=== PATIENT | male | born 1970 ===

== ENCOUNTER → 2023-07-22 | Outpatient (CLI) | payer OTHER ==
[~2023-07-22] VITALS: Ht 190.5 cm; Wt 125.2 kg
== END | disposition home or self-care (01) ==
LOC: Rad HDHVI 14:14
PROVIDERS: ATTEND Internal Medicine Cardiovascular Disease
DX: I11.9 Hypertensive heart disease without heart failure (principal); R00.1 Bradycardia, unspecified; R42 Dizziness and giddiness
CPT/HCPCS: 78452; 93017; 93306; 96374; A9500